=== PATIENT | male | born 1970 | race Two or more races ===

== ENCOUNTER 2018-12-11 16:29 | Emergency (ER) | payer OTHER ==
[~2018-12-11] VITALS: Ht 172.7 cm; Wt 91.0 kg
[2018-12-11] MEDS ORDERED: IBUPROFEN 600MG TABLET PO STA (19:36)
[2018-12-11] MEDS ORDERED: TETANUS, DIPHTHERIA, PERTUSSIS VAC/PF 0.5ML (>7YR OLD) IM ONE (19:45)
[2018-12-11] MEDS ORDERED: LIDOCAINE HCL/PF 1% 10 MG/ML 5ML VIAL IJ ONE (19:45)
[2018-12-11] MEDS ORDERED: BACITRACIN ZINC OINT UDPKT TOP ONE (19:45)
[2018-12-11] MEDS ORDERED: BACITRACIN 15GM TUBE TOP SCH (20:15)
[2018-12-11 21:15] VITALS: BP 131/75
== END 2018-12-11 21:15 | disposition home or self-care (01) ==
LOC: ER 16:29
DX: S91.332A Puncture wound without foreign body, left foot, initial encounter (principal); W22.09XA Striking against other stationary object, initial encounter; Y93.89 Activity, other specified; Y92.89 Other specified places as the place of occurrence of the external cause; Z23 Encounter for immunization
CPT/HCPCS: 73630; 90471; 90715; 99283; J3490